=== PATIENT | male | born 2000 | race Two or more races ===

== ENCOUNTER → 2021-05-29 | Outpatient (REF) | payer BC ==
[2021-05-29 17:35] LABS: APPEARANCE, URINE CLEAR (CLEAR); BACTERIA, URINE AUTO NEGATIVE (NEGATIVE); BASO # 0.1 10^3/uL (0.0-0.2); BASO % 0.8 % (0.0-1.0); BILIRUBIN, URINE AUTO NEGATIVE (NEGATIVE); BLOOD, URINE BLOOD NEGATIVE (NEGATIVE); COLOR, URINE YELLOW (YELLOW); EOS # 0.5 10^3/uL (0.0-0.5); GLUCOSE, URINE (UA) AUTO NEGATIVE (NEGATIVE); HEMATOCRIT 46.1 % (42.0-52.0); HEMOGLOBIN 15.2 g/dl (13.5-17.5); KETONE, URINE AUTO NEGATIVE (NEGATIVE); LEUKOCYTE ESTERASE, URINE AUTO NEGATIVE (NEGATIVE); LYMPH # 2.6 10^3/uL (1.5-5.0); MEAN CORPUSCULAR HEMOGLOBIN 29.2 pg (27.0-33.0); MEAN CORPUSCULAR VOLUME 88.7 fl (80.0-96.0); MONO # 0.6 10^3/uL (0.0-0.8); MONO % 8.2 % (2.0-8.0); NEUTROPHILS # 3.8 10^3/uL (1.5-8.5); NEUTROPHILS % 50.7 % (36.0-66.0); NITRITE, URINE AUTO NEGATIVE (NEGATIVE); PLATELET COUNT, AUTOMATED 289 10^3/uL (150-450); PROTEIN, URINE AUTO NEGATIVE (NEGATIVE); RBC, URINE AUTO 0 /HPF (0-3); SPECIFIC GRAVITY URINE AUTO 1.016 (1.002-1.035); SQUAMOUS EPITHELIAL CELL UR AU 0 /HPF (0-6); UROBILINOGEN, URINE AUTO 0.2 mg/dL (0.0-2.0); WBC, URINE AUTO 0 /HPF (0-3); WHITE BLOOD COUNT 7.5 10^3/uL (4.0-10.0)
[2021-05-29 17:50] LABS: ALBUMIN 4.7 GM/DL (3.2-5.2); ALT/SGPT 16 U/L (12-78); BILIRUBIN,TOTAL 0.3 MG/DL (0.2-1.0); BLOOD UREA NITROGEN 15 MG/DL (7-18); CALCIUM LEVEL 9.5 MG/DL (8.5-10.1); CARBON DIOXIDE LEVEL 28 MEQ/L (21-32); CHLORIDE LEVEL 106 MEQ/L (98-107); CREATININE FOR GFR 1.15 MG/DL (0.70-1.30); GLOMERULAR FILTRATION RATE > 60.0 (>60); GLUCOSE, FASTING 101 MG/DL (70-100); POTASSIUM SERUM 4.2 MEQ/L (3.5-5.1); SODIUM LEVEL 140 MEQ/L (136-145); TOTAL PROTEIN 8.3 GM/DL (6.4-8.2)
== END ==
LOC: M SFHCADAM 15:24
PROVIDERS: ATTEND Physician Assistant Medical
DX: F41.9 Anxiety disorder, unspecified (principal); F90.9 Attention-deficit hyperactivity disorder, unspecified type; Z84.1 Family history of disorders of kidney and ureter

== ENCOUNTER → 2023-03-01 | Outpatient (CLI) | payer BC | LOC: M PLALAB 15:43 | PROVIDERS: ATTEND Registered Nurse | DX: M54.50 Low back pain, unspecified (principal); M54.32 Sciatica, left side ==

== ENCOUNTER → 2023-04-07 | Outpatient (CLI) | payer BC | LOC: M PLAIMG 06:58 | PROVIDERS: ATTEND Registered Nurse | DX: M54.50 Low back pain, unspecified (principal); M48.061 Spinal stenosis, lumbar region without neurogenic claudication ==

== ENCOUNTER 2024-03-05 03:14 | Inpatient (IN) | payer BC ==
[~2024-03-05] VITALS: Ht 177.8 cm; Wt 73.5 kg
[2024-03-05] VITALS (119 sets, daily range): BP systolic 65–151; BP diastolic 37–83; TEMP 95.5–102; O2SAT 76–100
[2024-03-05 03:39] LABS: VENOUS BASE EXCESS -9.1 (-2.0-2.0); VENOUS O2 SATURATION 89.7 % (60.0-80.0); VENOUS PARTIAL PRESSURE CO2 42.8 mmHg (38.0-50.0); VENOUS PARTIAL PRESSURE O2 64.8 mmHg (30.0-50.0); VENOUS PH 7.241 UNITS (7.330-7.430); VENOUS STANDARD HCO3 17.2 MMOL/L; VENOUS TOTAL CO2 19.3 MMOL/L (24.0-28.0)
[2024-03-05 03:42] LABS: ABG BASE EXCESS -8.1 (-2.0-2.0); ABG O2 SATURATION 99.7 % (95.0-99.0); ABG PARTIAL PRESSURE O2 329.5 mmHg (75.0-100.0); ABG STANDARD HCO3 18.1 MMOL/L. (22.0-26.0); ABG TOTAL CO2 19.2 MMOL/L (22.0-29.0); ABG pH (ARTERIAL) 7.282 UNITS (7.350-7.450)
[2024-03-05 03:45] LABS: APPEARANCE, URINE CLEAR (CLEAR); BACTERIA, URINE AUTO NEGATIVE (NEGATIVE); BILIRUBIN, URINE AUTO NEGATIVE (NEGATIVE); BLOOD, URINE BLOOD NEGATIVE (NEGATIVE); COLOR, URINE STRAW (YELLOW); GLUCOSE, URINE (UA) AUTO NEGATIVE (NEGATIVE); KETONE, URINE AUTO NEGATIVE (NEGATIVE); LEUKOCYTE ESTERASE, URINE AUTO NEGATIVE (NEGATIVE); NITRITE, URINE AUTO NEGATIVE (NEGATIVE); PROTEIN, URINE AUTO NEGATIVE (NEGATIVE); RBC, URINE AUTO 0 /HPF (0-3); SPECIFIC GRAVITY URINE AUTO 1.002 (1.002-1.035); SQUAMOUS EPITHELIAL CELL UR AU 0 /HPF (0-6); UROBILINOGEN, URINE AUTO 0.2 mg/dL (0.0-2.0); WBC, URINE AUTO 0 /HPF (0-3)
[2024-03-05 03:46] LABS: HEMATOCRIT 40.8 % (42.0-52.0); HEMOGLOBIN 13.8 g/dl (13.5-17.5); MEAN CORPUSCULAR HEMOGLOBIN 31.4 pg (27.0-33.0); MEAN CORPUSCULAR HGB CONC 33.8 g/dl (32.0-36.5); MEAN CORPUSCULAR VOLUME 92.9 fl (80.0-96.0); PLATELET COUNT, AUTOMATED 357 10^3/uL (150-450); RED BLOOD COUNT 4.39 10^6/uL (4.30-6.10); WHITE BLOOD COUNT 16.5 10^3/uL (4.0-10.0)
[2024-03-05] MEDS ORDERED: ISOVUE-370 76% 100ML VIAL As Ordered ONE (03:50)
[2024-03-05 03:59] LABS: INR 1.47; PARTIAL THROMBOPLASTIN TIME 42.3 SECONDS (24.8-34.2); PROTHROMBIN TIME 17.3 SECONDS (12.5-14.5)
[2024-03-05 04:06] LABS: AMPHETAMINES LEVEL URINE NEGATIVE (NEGATIVE); BARBITURATES URINE NEGATIVE (NEGATIVE); BENZODIAZEPINES URINE NEGATIVE (NEGATIVE); METHADONE URINE NEGATIVE (NEGATIVE); OPIATES URINE NEGATIVE (NEGATIVE); PHENCYCLIDINE URINE NEGATIVE (NEGATIVE)
[2024-03-05 04:07] LABS: CANNABINOIDS URINE POSITIVE (NEGATIVE); COCAINE METABOLITE URINE POSITIVE (NEGATIVE); LIPASE 32 U/L (12-53)
[2024-03-05 04:08] LABS: ETHYL ALCOHOL (ETHANOL) 0.183 % (0.000-0.010)
[2024-03-05 04:09] LABS: AMYLASE 29 U/L (30-118); CPK CREATINE PHOSPHOKINASE 846 U/L (46-171)
[2024-03-05 04:10] LABS: ALBUMIN 3.8 G/DL (3.2-5.2); ALKALINE PHOSPHATASE 57 U/L (46-116); ALT/SGPT 40 U/L (7.0-40); AST/SGOT 57 U/L (<34); BILIRUBIN,DIRECT 0.2 MG/DL (<0.4); BILIRUBIN,TOTAL 0.5 MG/DL (0.3-1.2); BLOOD UREA NITROGEN 19 MG/DL (9-23); CALCIUM LEVEL 8.8 MG/DL (8.5-10.1); CARBON DIOXIDE LEVEL 21 MMOL/L (20-31); CHLORIDE LEVEL 108 MMOL/L (98-107); CREATININE FOR GFR 1.43 MG/DL (0.70-1.30); GLOMERULAR FILTRATION RATE > 60.0 (>60); GLUCOSE, FASTING 138 MG/DL (60-100); MB/CK RELATIVE INDEX 0.47 (< OR =4); POTASSIUM SERUM 3.6 MMOL/L (3.5-5.1); SODIUM LEVEL 138 MMOL/L (136-145); TOTAL PROTEIN 6.9 G/DL (5.7-8.2)
[2024-03-05] MEDS ORDERED: HOME MED LIST COMPLETE! XX SCH (06:00)
[2024-03-05] MEDS: NOREPINEPHRINE 4MG IN D5 250ML 4 MG in IV 1 EA IV SCH (07:01)
[2024-03-05 07:28] LABS: ABG HCO3 10.7 MMOL/L (22.0-26.0); ABG O2 SATURATION 98.8 % (95.0-99.0); ABG PARTIAL PRESSURE CO2 22.1 mmHg (35.0-45.0); ABG STANDARD HCO3 13.5 MMOL/L. (22.0-26.0); ABG TOTAL CO2 11.3 MMOL/L (22.0-29.0); ABG pH (ARTERIAL) 7.301 UNITS (7.350-7.450)
[2024-03-05] MEDS: VASOPRESSIN IN 0.9 % NACL 20 UNIT in IV 1 EA IV SCH (07:44)
[2024-03-05] MEDS: LR 1,000 ML IV ONE (07:46)
[2024-03-05] MEDS: cefTRIAXone SOD 1 GM in DEXTROSE 5% (D5W) ADV/MINI-BAG 50 ML IV SCH (07:46)
[2024-03-05 07:50] LABS: CALCIUM LEVEL 7.9 MG/DL (8.5-10.1); CREATININE FOR GFR 1.95 MG/DL (0.70-1.30); GLOMERULAR FILTRATION RATE 45.2 (>60); POTASSIUM SERUM 3.7 MMOL/L (3.5-5.1)
[2024-03-05] MEDS ORDERED: EPINEPHrine HCL INJ 1 MG in D5W 240 ML IV SCH (08:00)
[2024-03-05] MEDS ORDERED: SODIUM BICARBONATE 8.4% INJ 50ML SYRINGE As Ordered ONE (08:13)
[2024-03-05 08:16] LABS: HEMATOCRIT 29.7 % (42.0-52.0); MEAN CORPUSCULAR HEMOGLOBIN 31.4 pg (27.0-33.0); RED BLOOD COUNT 3.03 10^6/uL (4.30-6.10); WHITE BLOOD COUNT 25.6 10^3/uL (4.0-10.0)
[2024-03-05] MEDS: PANTOPRAZOLE 40MG VIAL IV SCH (08:19)
[2024-03-05] MEDS: HYDROCORTISONE 100MG/2ML VIAL IV ONE (08:19)
[2024-03-05] MEDS: SODIUM BICARBONATE 8.4% INJ 50ML SYRINGE IV STA ×4 (08:20→11:25)
[2024-03-05 08:22] LABS: HEMOGLOBIN 9.5 g/dl (13.5-17.5); PLATELET COUNT, AUTOMATED 232 10^3/uL (150-450)
[2024-03-05] MEDS: SODIUM BICARBONATE 100 MEQ in D5W 1,000 ML IV SCH (09:05)
[2024-03-05] MEDS ORDERED: EPINEPHrine HCL INJ 16 MG in D5W 984 ML IV SCH (10:00)
[2024-03-05] MEDS ORDERED: PHENYLEPHRINE HCL INJ 50 MG in D5W 495 ML IV SCH (12:00)
[2024-03-05] MEDS: PHENYLEPHRINE HCL INJ 50 MG in D5W 495 ML IV SCH (12:44)
[2024-03-05] MEDS: SODIUM BICARBONATE 8.4% INJ 50ML SYRINGE IV ONE (12:45)
[2024-03-05] MEDS: SODIUM BICARBONATE 8.4% INJ 50MEQ 50ML VIAL IV ONE (13:02)
[2024-03-05 13:14] LABS: ABG BASE EXCESS 39.7 (-2.0-2.0); ABG HCO3 62.1 MMOL/L (22.0-26.0); ABG O2 SATURATION 98.2 % (95.0-99.0); ABG PARTIAL PRESSURE CO2 45.2 mmHg (35.0-45.0); ABG PARTIAL PRESSURE O2 349.2 mmHg (75.0-100.0); ABG STANDARD HCO3 65.6 MMOL/L. (22.0-26.0); ABG TOTAL CO2 63.5 MMOL/L (22.0-29.0)
[2024-03-05 13:18] LABS: ABG pH (ARTERIAL) 7.756 UNITS (7.350-7.450)
[2024-03-05 13:26] LABS: EOS % 0.1 % (0.0-3.0); LYMPH # 1.3 10^3/uL (1.5-5.0); LYMPH % 10.9 % (24.0-44.0); MEAN CORPUSCULAR HEMOGLOBIN 31.7 pg (27.0-33.0); MEAN CORPUSCULAR HGB CONC 35.1 g/dl (32.0-36.5); MEAN CORPUSCULAR VOLUME 90.5 fl (80.0-96.0); MONO % 8.6 % (2.0-8.0); NEUTROPHILS # 9.2 10^3/uL (1.5-8.5); NEUTROPHILS % 79.5 % (36.0-66.0); RED BLOOD COUNT 1.26 10^6/uL (4.30-6.10); WHITE BLOOD COUNT 11.6 10^3/uL (4.0-10.0)
[2024-03-05] MEDS ORDERED: CALCIUM GLUCONATE 1,000 MG in DEXTROSE 5% (D5W) MINI-BAG PLU 100 ML IV STA (13:26)
[2024-03-05 13:32] LABS: HEMATOCRIT 11.4 % (42.0-52.0); PLATELET COUNT, AUTOMATED 104 10^3/uL (150-450)
[2024-03-05 13:35] LABS: INR 4.2; PROTHROMBIN TIME 38.9 SECONDS (12.5-14.5)
[2024-03-05] MEDS: LACRILUBE (AKWA TEARS) OPHTH OINT 3.5GM OU SCH (14:00)
[2024-03-05 14:01] LABS: ALBUMIN 1.3 G/DL (3.2-5.2); ALKALINE PHOSPHATASE 21 U/L (46-116); ALT/SGPT 383 U/L (7.0-40); AST/SGOT 430 U/L (<34); BILIRUBIN,TOTAL 0.2 MG/DL (0.3-1.2); BLOOD UREA NITROGEN 24 MG/DL (9-23); CALCIUM LEVEL 5.9 MG/DL (8.5-10.1); CARBON DIOXIDE LEVEL > 40.0 MMOL/L (20-31); CHLORIDE LEVEL 97 MMOL/L (98-107); GLOMERULAR FILTRATION RATE 43.9 (>60); GLUCOSE, FASTING 316 MG/DL (60-100); MAGNESIUM LEVEL 1.5 MG/DL (1.8-2.4); POTASSIUM SERUM 3.3 MMOL/L (3.5-5.1); SODIUM LEVEL 165 MMOL/L (136-145); TOTAL PROTEIN 2.4 G/DL (5.7-8.2)
[2024-03-05] MEDS: CALCIUM GLUCONATE 1,000 MG in DEXTROSE 5% (D5W) MINI-BAG PLU 100 ML IV SCH (14:07)
[2024-03-05] MEDS: ACETAMINOPHEN *IV* 1,000 MG in IV 1 EA IV ONE (14:07)
[2024-03-05] MEDS ORDERED: ONDANSETRON 4MG 2ML VIAL IV PRN (14:50)
[2024-03-05] MEDS ORDERED: MORPHINE 2 MG/ML 1ML VIAL IV PRN (14:50)
[2024-03-05] MEDS ORDERED: SCOPOLAMINE 1MG TRANSDERMAL PATCH TOP PRN (14:50)
[2024-03-05] MEDS ORDERED: LORazepam 2 MG/ML 1ML VIAL As Ordered ONE (14:51)
[2024-03-05] MEDS ORDERED: MORPHINE 4 MG/ML 1ML VIAL As Ordered ONE (14:51)
[2024-03-05] MEDS: LORazepam 2 MG/ML 1ML VIAL IV PRN (15:02)
[2024-03-05] MEDS: MORPHINE 4 MG/ML 1ML VIAL IV PRN (15:02)
[2024-03-05] MEDS: LORazepam 2 MG/ML 1ML VIAL IV STA ×2 (15:05→15:10)
[2024-03-05] MEDS: MORPHINE 4 MG/ML 1ML VIAL IV ONE ×2 (15:10→15:12)
[2024-03-05] MEDS ORDERED: HYDROCORTISONE 100MG/2ML VIAL IV SCH (17:00)
== END 2024-03-05 15:32 | disposition expired | DRG 930 ==
LOC: M ED 03:14 → EDBD 03:14 → M ED INP 05:26 → M ICU 06:37
PROVIDERS: ADMIT Student in an Organized Health Care Education/Training Program; ATTEND Student in an Organized Health Care Education/Training Program
DX: S02.81XA Fracture of other specified skull and facial bones, right side, initial encounter for closed fracture (principal); R57.8 Other shock; J69.0 Pneumonitis due to inhalation of food and vomit; S27.331A Laceration of lung, unilateral, initial encounter; S27.0XXA Traumatic pneumothorax, initial encounter; D68.9 Coagulation defect, unspecified; N17.9 Acute kidney failure, unspecified; M62.82 Rhabdomyolysis; E87.20 Acidosis, unspecified; E87.0 Hyperosmolality and hypernatremia; G93.89 Other specified disorders of brain; E83.42 Hypomagnesemia; E83.39 Other disorders of phosphorus metabolism; S42.191A Fracture of other part of scapula, right shoulder, initial encounter for closed fracture; F10.10 Alcohol abuse, uncomplicated; F12.90 Cannabis use, unspecified, uncomplicated; F14.90 Cocaine use, unspecified, uncomplicated; V40.5XXA Car driver injured in collision with pedestrian or animal in traffic accident, initial encounter